=== PATIENT | female | born 1960 | race Caucasian/White ===

== ENCOUNTER 2021-02-14 17:12 | Inpatient (IN) ==
[2021-02-14] MEDS ORDERED: DilTIAZem 125 MG in D5% in Water 100 ML IVC SCH (17:45)
[2021-02-14 18:03] LABS: Hemoglobin 13.8 g/dL (11.5-15.4); Mean Corpuscular HGB Conc 32.9 g/dL (31.6-35.5); Mean Corpuscular Hemoglobin 29.4 pg (28.0-33.3); Mean Corpuscular Volume 89.4 fL (83.0-100.0); Mean Platelet Volume 9.9 fL (9.4-12.4); Platelet Count 274 K/mcL (140-400); Red Cell Distribution Width 14.6 % (11.5-14.5)
[2021-02-14 18:07] LABS: White Blood Count 9.7 K/mcL (4.3-11.1)
[2021-02-14 18:23] LABS: Alanine Aminotransferase 93 Units/L (7-52); Albumin 3.6 g/dL (3.5-5.7); Albumin/Globulin Ratio 1.2 (1.1-2.2); Aspartate Amino Transferase 76 Units/L (13-39); BUN/Creatinine Ratio 34 (6-26); Bilirubin,Direct 0.4 mg/dL (0.0-0.2); Bilirubin,Indirect 0.6 mg/dL (0.0-1.0); Blood Urea Nitrogen 35 mg/dL (8-23); Calcium 8.7 mg/dL (8.6-10.3); Carbon Dioxide 18 mEq/L (23-29); Chloride 104 mEq/L (98-107); Globulin 2.9 g/dL (2.4-3.5); Glucose 96 mg/dL (70-105); Lipase 43 Units/L (11-82); Osmolality,Calculated 286 (280-300); Potassium 3.9 mEq/L (3.5-5.1); Sodium 134 mEq/L (136-145); Total Protein 6.5 g/dL (6.4-8.9); eGFR For African Americans > 60 (> 60); eGFR For Non-African Americans 54 (> 60)
[2021-02-14 18:31] LABS: Troponin I < 0.03 ng/mL (< 0.04)
[2021-02-14] MEDS ORDERED: Ondansetron 4 MG/2 ML VIAL IVP ONE (19:02)
[2021-02-14] MEDS ORDERED: *HR* HYDROmorphone (PF) 1 MG/ML SYRINGE IVP STA (19:02)
[2021-02-14 19:20] LABS: Alkaline Phosphatase 81 Units/L (34-104)
[2021-02-14] MEDS: 0.9 % Sodium Chloride 1,000 ML IVC SCH (19:27)
[2021-02-14] MEDS ORDERED: Naloxone 0.4 MG/ML INJ IVP PRN (20:10)
[2021-02-14] MEDS ORDERED: Ondansetron 4 MG/2 ML VIAL IVP PRN (20:10)
[2021-02-14] MEDS ORDERED: Acetaminophen 325 MG TABLET PO PRN (20:10)
[2021-02-14] MEDS ORDERED: 0.9 % Sodium Chloride 1,000 ML IVC SCH (20:15)
[2021-02-14] MEDS ORDERED: *HR* Metoprolol 5 MG/5 ML VIAL IVP ONE (20:53)
[2021-02-15] MEDS ORDERED: D5% in Water 1,000 ML IVC PRN (00:11)
[2021-02-15] MEDS ORDERED: Dextrose Gel 15 GM/37.5 ML TUBE PO PRN ×2 (00:11)
[2021-02-15] MEDS ORDERED: *HR* Dextrose 50 % in Water (Vial) 50 ML VIAL IVP PRN (00:11)
[2021-02-15] MEDS: cefTRIAXone 1,000 MG in Water for inj. (sterile) 10 ML IVP SCH ×2 (02:00→13:49)
[2021-02-15] MEDS ORDERED: *HR* Heparin 5,000 UNIT/ML VIAL IVP PRN ×2 (03:27)
[2021-02-15] MEDS ORDERED: *HR* Heparin 5,000 UNIT/ML VIAL IVP ONE (03:27)
[2021-02-15] MEDS ORDERED: Heparin 25,000UNIT/250ML 1/2NS 25,000 UNIT/250 ML IV.SOLN IVC SCH (03:30)
[2021-02-15 03:43] LABS: BUN/Creatinine Ratio 37 (6-26); Blood Urea Nitrogen 33 mg/dL (8-23); Calcium 8.2 mg/dL (8.6-10.3); Carbon Dioxide 19 mEq/L (23-29); Chloride 105 mEq/L (98-107); Glucose 101 mg/dL (70-105); Osmolality,Calculated 285 (280-300); Potassium 4.4 mEq/L (3.5-5.1); Sodium 134 mEq/L (136-145); eGFR For African Americans > 60 (> 60); eGFR For Non-African Americans > 60 (> 60)
[2021-02-15] MEDS: DilTIAZem 50 MG/50 ML IV.SOLN IVC SCH ×3 (04:51→14:29)
[2021-02-15] MEDS: MetroNIDAZOLE 500 MG/100 ML 500 MG/100 ML BAG IVPB SCH ×3 (05:01→18:00)
[2021-02-15] MEDS: 0.9 % Sodium Chloride 1,000 ML IVC SCH ×2 (05:12→05:37)
[2021-02-15] MEDS ORDERED: 0.9 % Sodium Chloride 1,000 ML IVC SCH (05:15)
[2021-02-15 05:26] LABS: Heparin anti-factor XA UFH 0.13 IU/mL (0.30-0.70); Prothrombin Time 16.5 Seconds (9.4-12.1)
[2021-02-15 05:27] LABS: INR 1.4
[2021-02-15 05:36] LABS: Hemoglobin 13.2 g/dL (11.5-15.4); Mean Corpuscular Volume 92.1 fL (83.0-100.0); Red Blood Count 4.45 M/mcL (3.82-4.97); White Blood Count 8.6 K/mcL (4.3-11.1)
[2021-02-15 05:37] LABS: Mean Corpuscular HGB Conc 32.2 g/dL (31.6-35.5); Mean Corpuscular Hemoglobin 29.7 pg (28.0-33.3); Mean Platelet Volume 10.3 fL (9.4-12.4); Platelet Count 263 K/mcL (140-400); Red Cell Distribution Width 14.8 % (11.5-14.5)
[2021-02-15] MEDS ORDERED: *HR* Metoprolol 5 MG/5 ML VIAL IVP ONE (08:19)
[2021-02-15] MEDS ORDERED: Lidocaine HCL 4 ML Topical Solution (Laryng-O-Jet Kit Sterile Pak) TP ONE (08:35)
[2021-02-15] MEDS ORDERED: Lidocaine -MPF 2% 2 ML VIAL ONE (08:35)
[2021-02-15] MEDS ORDERED: *HR* Rocuronium Bromide 50 MG/5 ML VIAL ONE (08:35)
[2021-02-15] MEDS ORDERED: Ondansetron 4 MG/2 ML VIAL ONE (08:35)
[2021-02-15] MEDS ORDERED: *HR* Digoxin 0.5 MG/2 ML AMPUL IVP ONE (08:35)
[2021-02-15] MEDS ORDERED: *HR* FentaNYL (PF) 100 MCG/2 ML VIAL ONE (08:35)
[2021-02-15] MEDS ORDERED: *HR* Propofol 200 MG/20 ML VIAL IVP ONE (08:35)
[2021-02-15] MEDS ORDERED: *HR* Midazolam HCl 2 MG/2 ML VIAL ONE (08:35)
[2021-02-15] MEDS ORDERED: *HR* Succinylcholine 200 MG/10 ML VIAL IVP ONE (08:35)
[2021-02-15] MEDS ORDERED: cefOXitin 1,000 MG, 0.9 % Sodium Chloride 1,000 ML IR ONE (09:00)
[2021-02-15] MEDS: Insulin LISPRO 300 UNITS/3 ML VIAL SUBQ SCH ×3 (10:38→19:06)
[2021-02-15 10:49] LABS: Estimated Average Glucose 120 mg/dl; Hemoglobin A1C 5.8 %
[2021-02-15] MEDS ORDERED: Isovue-300 50ML VIAL ONE (11:40)
[2021-02-15] MEDS: Gabapentin 400 MG CAPSULE PO SCH (20:31)
[2021-02-16] MEDS: MetroNIDAZOLE 500 MG/100 ML 500 MG/100 ML BAG IVPB SCH ×3 (00:29→16:03)
[2021-02-16] MEDS: Insulin LISPRO 300 UNITS/3 ML VIAL SUBQ SCH ×4 (00:32→17:09)
[2021-02-16 06:16] LABS: Hematocrit 42.1 % (35.3-44.9); Hemoglobin 13.3 g/dL (11.5-15.4); Mean Corpuscular HGB Conc 31.6 g/dL (31.6-35.5); Mean Corpuscular Hemoglobin 29.6 pg (28.0-33.3); Mean Corpuscular Volume 93.6 fL (83.0-100.0); Mean Platelet Volume 9.6 fL (9.4-12.4); Platelet Count 251 K/mcL (140-400); Red Cell Distribution Width 14.7 % (11.5-14.5); White Blood Count 7.6 K/mcL (4.3-11.1)
[2021-02-16 06:43] LABS: BUN/Creatinine Ratio 26 (6-26); Blood Urea Nitrogen 25 mg/dL (8-23); Calcium 8.3 mg/dL (8.6-10.3); Carbon Dioxide 24 mEq/L (23-29); Chloride 105 mEq/L (98-107); Glucose 92 mg/dL (70-105); Osmolality,Calculated 286 (280-300); Potassium 4.1 mEq/L (3.5-5.1); Sodium 136 mEq/L (136-145); eGFR For African Americans > 60 (> 60); eGFR For Non-African Americans 59 (> 60)
[2021-02-16] MEDS ORDERED: DilTIAZem CD (24hr) 120 MG CAP.ER.24H PO SCH (07:29)
[2021-02-16] MEDS ORDERED: *HR* LORazepam 2 MG/ML VIAL IVP ONE (08:34)
[2021-02-16] MEDS ORDERED: Venlafaxine XR (24 HR) 75 MG CAP.ER.24H PO SCH (09:00)
[2021-02-16] MEDS ORDERED: Furosemide 20 MG/2 ML VIAL IVP SCH (09:00)
[2021-02-16] MEDS ORDERED: Venlafaxine XR (24 HR) 150 MG CAP.ER.24H PO SCH (09:00)
[2021-02-16] MEDS: Gabapentin 400 MG CAPSULE PO SCH ×3 (09:15→19:47)
[2021-02-16] MEDS: cefTRIAXone 1,000 MG in Water for inj. (sterile) 10 ML IVP SCH (10:22)
[2021-02-16] MEDS ORDERED: *HR* Propofol 200 MG/20 ML VIAL IVP ONE (10:33)
[2021-02-16] MEDS ORDERED: *HR* FentaNYL (PF) 100 MCG/2 ML VIAL ONE (10:33)
[2021-02-16] MEDS ORDERED: *HR* Rocuronium Bromide 50 MG/5 ML VIAL ONE (10:34)
[2021-02-16] MEDS ORDERED: *HR* Succinylcholine 200 MG/10 ML VIAL IVP ONE (10:34)
[2021-02-16] MEDS ORDERED: *HR* Midazolam HCl 2 MG/2 ML VIAL ONE (10:34)
[2021-02-16] MEDS ORDERED: Ondansetron 4 MG/2 ML VIAL ONE (10:34)
[2021-02-16] MEDS ORDERED: Lidocaine -MPF 2% 2 ML VIAL ONE (10:34)
[2021-02-16] MEDS ORDERED: *HR* HYDROMORPHONE 2 MG/ML VIAL ONE (10:34)
[2021-02-16] MEDS ORDERED: Lidocaine HCL 4 ML Topical Solution (Laryng-O-Jet Kit Sterile Pak) TP ONE (10:34)
[2021-02-16] MEDS ORDERED: Sugammadex Sodium 200 MG/2 ML VIAL IV ONE (10:35)
[2021-02-16] MEDS ORDERED: cefOXitin 1,000 MG, 0.9 % Sodium Chloride 1,000 ML IR ONE ×2 (11:15→14:48)
[2021-02-16] MEDS ORDERED: *HR* HYDROmorphone PF 0.5 MG/0.5 ML SYRINGE IVP PRN ×2 (11:48→14:48)
[2021-02-16] MEDS ORDERED: Ondansetron 4 MG/2 ML VIAL IVP PRN ×2 (11:48→14:48)
[2021-02-16] MEDS ORDERED: *HR* Meperidine 25 MG/ML SYRINGE IVP PRN ×2 (11:48→14:48)
[2021-02-16] MEDS ORDERED: Ketorolac 30 MG/ML VIAL ONE (12:58)
[2021-02-16] MEDS ORDERED: Levalbuterol Neb 1.25 MG/3 ML IH STA (13:40)
[2021-02-16] MEDS ORDERED: Promethazine 6.25 MG in Water for inj. (sterile) 20 ML IVPB PRN (14:02)
[2021-02-16] MEDS ORDERED: *HR* Dextrose 50 % in Water (Vial) 50 ML VIAL IVP PRN (14:48)
[2021-02-16] MEDS ORDERED: Naloxone 0.4 MG/ML INJ IVP PRN (14:48)
[2021-02-16] MEDS ORDERED: Acetaminophen 325 MG TABLET PO PRN (14:48)
[2021-02-16] MEDS ORDERED: Dextrose Gel 15 GM/37.5 ML TUBE PO PRN ×2 (14:48)
[2021-02-16] MEDS ORDERED: D5% in Water 1,000 ML IVC PRN (14:48)
[2021-02-16] MEDS: Furosemide 20 MG/2 ML VIAL IVP SCH (17:10)
[2021-02-17] MEDS: MetroNIDAZOLE 500 MG/100 ML 500 MG/100 ML BAG IVPB SCH ×3 (00:29→18:28)
[2021-02-17] MEDS: Insulin LISPRO 300 UNITS/3 ML VIAL SUBQ SCH ×4 (00:30→18:29)
[2021-02-17 06:13] VITALS: TEMP 97.8; O2SAT 90
[2021-02-17] MEDS: Gabapentin 400 MG CAPSULE PO SCH ×2 (08:48→16:15)
[2021-02-17] MEDS: Furosemide 20 MG/2 ML VIAL IVP SCH ×2 (08:48→18:29)
[2021-02-17] MEDS ORDERED: cefTRIAXone 1,000 MG in Water for inj. (sterile) 10 ML IVP SCH (09:00)
[2021-02-17] MEDS ORDERED: Venlafaxine XR (24 HR) 75 MG CAP.ER.24H PO SCH (09:00)
[2021-02-17] MEDS ORDERED: DilTIAZem CD (24hr) 120 MG CAP.ER.24H PO SCH (09:00)
[2021-02-17 09:09] LABS: Hematocrit 42.2 % (35.3-44.9); Hemoglobin 13.2 g/dL (11.5-15.4); Mean Corpuscular HGB Conc 31.3 g/dL (31.6-35.5); Mean Corpuscular Hemoglobin 29.2 pg (28.0-33.3); Mean Corpuscular Volume 93.4 fL (83.0-100.0); Mean Platelet Volume 9.6 fL (9.4-12.4); Platelet Count 249 K/mcL (140-400); Red Blood Count 4.52 M/mcL (3.82-4.97); Red Cell Distribution Width 14.6 % (11.5-14.5); White Blood Count 8.2 K/mcL (4.3-11.1)
[2021-02-17 09:25] LABS: Magnesium 2.2 mg/dL (1.6-2.6); Potassium 4.7 mEq/L (3.5-5.1)
[2021-02-17 11:10] LABS: Calcium 8.8 mg/dL (8.6-10.3)
[2021-02-17 11:49] VITALS: BP 111/86; PULSE 119
== END 2021-02-17 19:03 | disposition home or self-care (01) | DRG 417 ==
LOC: EMEROOARM 17:12 → 2NENU 17:12 → SUATTDRO 20:06 → 2NENU 21:13 → SUATTDRO 02-15 21:05
PROVIDERS: ADMIT Internal Medicine; ATTEND Internal Medicine

== ENCOUNTER 2021-02-22 11:59 | Inpatient (IN) ==
[2021-02-22] MEDS ORDERED: Morphine Sulfate 2 MG/ML SYRINGE IVP ONE (12:05)
[2021-02-22] MEDS ORDERED: 0.9 % Sodium Chloride 1,000 ML IVC ONE (12:05)
[2021-02-22] MEDS ORDERED: Ondansetron 4 MG/2 ML VIAL IVP ONE (12:05)
[2021-02-22] MEDS ORDERED: Isovue-370 500 ML BOTTLE IVP ONE ×2 (12:18→13:15)
[2021-02-22 12:48] LABS: Basophils % 0.1 %; Hemoglobin 14.4 g/dL (11.5-15.4); Monocytes % 6.6 %; Segmented Neutrophils % 90.1 %
[2021-02-22 12:50] LABS: Hematocrit 43.2 % (35.3-44.9); Immature Granulocytes % 0.7 % (0-4); Lymphocytes # 0.7 K/mcL (0.6-4.6); Lymphocytes % 2.5 %; Mean Corpuscular HGB Conc 33.3 g/dL (31.6-35.5); Mean Corpuscular Hemoglobin 29.8 pg (28.0-33.3); Mean Corpuscular Volume 89.3 fL (83.0-100.0); Monocytes # 1.8 K/mcL (0.0-1.3); Nucleated Red Blood Cells 0.1 /100 WBC (0); Platelet Count 200 K/mcL (140-400); Red Blood Count 4.84 M/mcL (3.82-4.97); Red Cell Distribution Width 14.6 % (11.5-14.5); White Blood Count 26.8 K/mcL (4.3-11.1)
[2021-02-22 12:59] LABS: INR 1.3; Prothrombin Time 15.3 Seconds (9.4-12.1)
[2021-02-22 13:00] LABS: VBG HCO3 33 mEq/L (21-27); VBG PCO2 60 mmHg (41-51); VBG PH 7.36 pH Units (7.32-7.42); VBG PO2 39 mmHg (25-50)
[2021-02-22 13:01] LABS: Activated Partial Thrombo Time 29.7 Seconds (26.0-36.0)
[2021-02-22 13:08] LABS: Neutrophils # 24.2 K/mcL (1.6-8.9)
[2021-02-22] MEDS ORDERED: cefTRIAXone 2,000 MG in Water for inj. (sterile) 20 ML IVP ONE (13:13)
[2021-02-22 13:18] LABS: Albumin 3.7 g/dL (3.5-5.7); Albumin/Globulin Ratio 1.1 (1.1-2.2); Bilirubin,Direct 0.5 mg/dL (0.0-0.2); Bilirubin,Indirect 0.7 mg/dL (0.0-1.0); Bilirubin,Total 1.2 mg/dL (0.3-1.0); Calcium 9.1 mg/dL (8.6-10.3); Globulin 3.4 g/dL (2.4-3.5); Potassium 2.4 mEq/L (3.5-5.1); Total Protein 7.1 g/dL (6.4-8.9); Troponin I 0.03 ng/mL (< 0.04)
[2021-02-22] MEDS ORDERED: *HR* Dextrose 50 % in Water (Vial) 50 ML VIAL IVP ONE ×2 (13:18→21:45)
[2021-02-22 13:27] LABS: Platelet Estimate Normal (Normal)
[2021-02-22] MEDS ORDERED: Norepinephrine 4 MG in 0.9 % Sodium Chloride 250 ML IVC SCH (14:15)
[2021-02-22 14:27] LABS: Adenovirus Not Detected (Not Detect); Bordetella Pertussis Not Detected (Not Detect); Chlamydophila pneumoniae Not Detected (Not Detect); Coronavirus 229E Not Detected (Not Detect); Coronavirus HKU1 Not Detected (Not Detect); Coronavirus NL63 Not Detected (Not Detect); Coronavirus OC43 Not Detected (Not Detect); Human Metapneumovirus Not Detected (Not Detect); Human Rhinovirus/Enterovirus Not Detected (Not Detect); Influenza A Subtype 2009 H1 Not Detected (Not Detect); Influenza B Not Detected (Not Detect); Mycoplasma pneumoniae Not Detected (Not Detect); Parainfluenza Virus 1 Not Detected (Not Detect); Parainfluenza Virus 2 Not Detected (Not Detect); Parainfluenza Virus 3 Not Detected (Not Detect); Parainfluenza Virus 4 Not Detected (Not Detect); Respiratory Syncytial Virus Not Detected (Not Detect); SARS-CoV-2 Not Detected (Not Detect)
[2021-02-22 14:35] LABS: Bilirubin,Urine Negative (Negative); Blood,Urine Negative (Negative); Clarity,Urine Clear (Clear); Color,Urine Yellow (Yellow); Glucose,Urine (UA) Normal (Normal); Hyaline Casts,Urine Few per lpf (None Seen); Ketones,Urine Negative (Negative); Leukocyte Esterase,Urine Negative (Negative); Mucus,Urine Few per lpf (None-Few); Nitrite,Urine Negative (Negative); PH,Urine 5.5 pH Units (5.0-8.0); Protein,Urine 30 mg/dL (Neg-Trace); RBC,Urine 0-3 per hpf (0-3); Specific Gravity,Urine 1.018 (1.010-1.025); Squamous Epithelial Cell,Urine Few per hpf (None-Few); Urobilinogen,Urine Normal (Normal); WBC,Urine 0-3 per hpf (0-3)
[2021-02-22] MEDS ORDERED: ALTEPLASE IVPB ONE (15:15)
[2021-02-22] MEDS ORDERED: WATER FOR INJ IVPB ONE (15:15)
[2021-02-22] MEDS ORDERED: *HR* Etomidate 20 MG/10 ML AMPUL IVP ONE (15:52)
[2021-02-22] MEDS ORDERED: *HR* Heparin 5,000 UNIT/ML VIAL IVP ONE (16:50)
[2021-02-22] MEDS ORDERED: *HR* Heparin 5,000 UNIT/ML VIAL IVP PRN ×2 (16:50)
[2021-02-22] MEDS ORDERED: Norepinephrine 4 MG/254 ML IV.SOLN IVC SCH (17:00)
[2021-02-22] MEDS: Heparin 25,000UNIT/250ML 1/2NS 25,000 UNIT/250 ML IV.SOLN IVC SCH (17:39)
[2021-02-22 18:06] LABS: Mean Corpuscular HGB Conc 32.1 g/dL (31.6-35.5); Mean Corpuscular Volume 90.5 fL (83.0-100.0); Mean Platelet Volume 9.8 fL (9.4-12.4); Platelet Count 160 K/mcL (140-400); White Blood Count 24.9 K/mcL (4.3-11.1)
[2021-02-22 18:14] LABS: INR 1.3; Prothrombin Time 15.3 Seconds (9.4-12.1)
[2021-02-22 18:16] LABS: Heparin anti-factor XA UFH < 0.04 IU/mL (0.30-0.70)
[2021-02-22 18:17] LABS: Hemoglobin 12.2 g/dL (11.5-15.4)
[2021-02-22] MEDS ORDERED: *HR* Dextrose 50 % in Water (Vial) 50 ML VIAL ONE (18:53)
[2021-02-22] MEDS ORDERED: Levalbuterol Neb 1.25 MG/3 ML IH STA (18:57)
[2021-02-22] MEDS ORDERED: methylPREDNISolone 125 MG/2 ML VIAL IVP STA (18:57)
[2021-02-22] MEDS ORDERED: 0.9 % Sodium Chloride 250 ML IVC STA (20:47)
[2021-02-22] MEDS ORDERED: Pantoprazole 40 MG VIAL IVP ONE (20:47)
[2021-02-22] MEDS ORDERED: *HR* Dextrose 50 % in Water (Syg) 50 ML SYRINGE ONE (21:50)
[2021-02-22] MEDS ORDERED: *HR* Dextrose 50 % in Water (Syg) 50 ML SYRINGE IVP ONE (22:00)
[2021-02-22] MEDS ORDERED: Azithromycin 500 MG in 0.9 % Sodium Chloride 250 ML IVPB ONE (23:52)
[2021-02-23] MEDS ORDERED: *HR* Dextrose 50 % in Water (Syg) 50 ML SYRINGE ONE ×2 (00:35→03:14)
[2021-02-23] MEDS ORDERED: Cefepime HCl 1,000 MG in Water for inj. (sterile) 10 ML IVP STA (00:37)
[2021-02-23] MEDS ORDERED: *HR* Dextrose 50 % in Water (Vial) 50 ML VIAL IVP ONE ×2 (00:45→04:15)
[2021-02-23] MEDS ORDERED: Vancomycin 1,750 MG/517.5 ML IV.SOLN IVPB ONE (01:00)
[2021-02-23 01:19] LABS: Calcium 7.9 mg/dL (8.6-10.3); Potassium 3.6 mEq/L (3.5-5.1)
[2021-02-23] MEDS ORDERED: Naloxone 0.4 MG/ML INJ IVP PRN (04:26)
[2021-02-23] MEDS ORDERED: Acetaminophen 325 MG TABLET PO PRN (04:26)
[2021-02-23] MEDS ORDERED: Ondansetron 4 MG/2 ML VIAL IVP PRN (04:26)
[2021-02-23] MEDS ORDERED: Dextrose Gel 15 GM/37.5 ML TUBE PO PRN ×2 (04:37)
[2021-02-23] MEDS ORDERED: *HR* Dextrose 50 % in Water (Vial) 50 ML VIAL IVP PRN (04:37)
[2021-02-23] MEDS ORDERED: D5% in Water 1,000 ML IVC PRN ×2 (04:37→12:54)
[2021-02-23] MEDS ORDERED: *HR* Metoprolol 5 MG/5 ML VIAL IVP PRN (04:38)
[2021-02-23] MEDS ORDERED: Vancomycin (wt based) 1,000 MG VIAL IVPB SCH (05:00)
[2021-02-23 05:10] LABS: Basophils % 0.1 %; Hematocrit 34.3 % (35.3-44.9); Hemoglobin 10.9 g/dL (11.5-15.4); Immature Granulocytes % 0.7 % (0-4); Lymphocytes # 0.5 K/mcL (0.6-4.6); Lymphocytes % 2.7 %; Mean Corpuscular HGB Conc 31.8 g/dL (31.6-35.5); Mean Corpuscular Hemoglobin 28.8 pg (28.0-33.3); Mean Corpuscular Volume 90.7 fL (83.0-100.0); Monocytes # 0.9 K/mcL (0.0-1.3); Monocytes % 4.5 %; Neutrophils # 18.4 K/mcL (1.6-8.9); Nucleated Red Blood Cells 0.1 /100 WBC (0); Platelet Count 103 K/mcL (140-400); Red Blood Count 3.78 M/mcL (3.82-4.97); Red Cell Distribution Width 15.2 % (11.5-14.5)
[2021-02-23 05:18] LABS: Heparin anti-factor XA UFH 0.94 IU/mL (0.30-0.70); INR 1.5; Prothrombin Time 16.7 Seconds (9.4-12.1)
[2021-02-23] MEDS: Ipratropium/Albuterol Neb 3 ML IH SCH ×6 (05:22→23:40)
[2021-02-23 05:25] LABS: Calcium 7.6 mg/dL (8.6-10.3); Potassium 3.6 mEq/L (3.5-5.1)
[2021-02-23 05:27] LABS: Magnesium 1.9 mg/dL (1.6-2.6); Phosphorous 3.6 mg/dL (2.7-4.5)
[2021-02-23 05:41] LABS: Activated Partial Thrombo Time 134.9 Seconds (26.0-36.0)
[2021-02-23 05:47] LABS: Troponin I 0.04 ng/mL (< 0.04)
[2021-02-23] MEDS ORDERED: Perflutren Lipid Microsphere 1.3 ML in 0.9 % Sodium Chloride 8.7 ML IVP PRN (06:40)
[2021-02-23] MEDS: Budesonide/Formoterol 160/4.5 1 PUFF INH IH SCH ×2 (07:59→20:07)
[2021-02-23] MEDS ORDERED: Cefepime HCl 2,000 MG in Water for inj. (sterile) 10 ML IVP SCH (08:00)
[2021-02-23] MEDS: MethylPREDNISolone 40 MG/ML VIAL IVP SCH ×2 (08:03→17:21)
[2021-02-23] MEDS ORDERED: Azithromycin 250 MG TABLET PO SCH (09:00)
[2021-02-23] MEDS: Azithromycin 500 MG in 0.9 % Sodium Chloride 250 ML IVPB SCH (09:11)
[2021-02-23] MEDS: Heparin 25,000UNIT/250ML 1/2NS 25,000 UNIT/250 ML IV.SOLN IVC SCH ×3 (09:27→15:30)
[2021-02-23] MEDS: D5% in 0.9% NACL 1,000 ML IVC SCH ×2 (10:50→12:55)
[2021-02-23] MEDS ORDERED: 0.9 % Sodium Chloride 1,000 ML IVC SCH (13:00)
[2021-02-23] MEDS: 0.9 % Sodium Chloride 1,000 ML IVC SCH ×2 (13:35→21:45)
[2021-02-23] MEDS ORDERED: *HR* Heparin 5,000 UNIT/ML VIAL IVP PRN ×2 (15:28)
[2021-02-23] MEDS ORDERED: Melatonin 3 MG TABLET PO PRN (20:56)
[2021-02-23] MEDS: Gabapentin 300 MG CAPSULE PO SCH (21:45)
[2021-02-23] MEDS: Cefepime HCl 2,000 MG in Water for inj. (sterile) 20 ML IVP SCH (21:45)
[2021-02-24] MEDS ORDERED: Vancomycin 1,500 MG/265 ML IV.SOLN IVPB SCH (01:00)
[2021-02-24] MEDS: MethylPREDNISolone 40 MG/ML VIAL IVP SCH ×4 (01:49→22:58)
[2021-02-24] MEDS: Ipratropium/Albuterol Neb 3 ML IH SCH ×6 (04:02→23:33)
[2021-02-24] MEDS: 0.9 % Sodium Chloride 1,000 ML IVC SCH ×2 (05:51→11:20)
[2021-02-24] MEDS: Heparin 25,000UNIT/250ML 1/2NS 25,000 UNIT/250 ML IV.SOLN IVC SCH (06:30)
[2021-02-24 06:54] LABS: Basophils % 0.1 %; Hemoglobin 11.4 g/dL (11.5-15.4); Red Cell Distribution Width 15.5 % (11.5-14.5)
[2021-02-24 06:56] LABS: Hematocrit 35.7 % (35.3-44.9); Immature Granulocytes % 0.8 % (0-4); Immature Platelets 4.7 % (1.1-6.1); Lymphocytes # 0.5 K/mcL (0.6-4.6); Lymphocytes % 2.4 %; Mean Corpuscular HGB Conc 31.9 g/dL (31.6-35.5); Mean Corpuscular Volume 90.8 fL (83.0-100.0); Monocytes # 0.6 K/mcL (0.0-1.3); Monocytes % 3.4 %; Neutrophils # 17.5 K/mcL (1.6-8.9); Red Blood Count 3.93 M/mcL (3.82-4.97); Segmented Neutrophils % 93.3 %; White Blood Count 18.7 K/mcL (4.3-11.1)
[2021-02-24 07:06] LABS: Calcium 8.4 mg/dL (8.6-10.3); Potassium 3.5 mEq/L (3.5-5.1)
[2021-02-24 07:14] LABS: Platelet Count 95 K/mcL (140-400); Platelet Estimate Slight Decrease (Normal)
[2021-02-24] MEDS: Budesonide/Formoterol 160/4.5 1 PUFF INH IH SCH ×2 (07:24→20:28)
[2021-02-24] MEDS: Gabapentin 300 MG CAPSULE PO SCH ×3 (08:17→20:14)
[2021-02-24] MEDS: Cefepime HCl 2,000 MG in Water for inj. (sterile) 20 ML IVP SCH ×2 (08:18→20:14)
[2021-02-24] MEDS: Azithromycin 500 MG in 0.9 % Sodium Chloride 250 ML IVPB SCH (08:18)
[2021-02-24] MEDS ORDERED: Venlafaxine XR (24 HR) 75 MG CAP.ER.24H PO SCH (09:00)
[2021-02-24 12:02] LABS: Activated Partial Thrombo Time 43.2 Seconds (26.0-36.0)
[2021-02-24 13:57] LABS: INR 1.1; Prothrombin Time 12.4 Seconds (9.4-12.1)
[2021-02-24] MEDS: Argatroban 250 MG in 0.9 % Sodium Chloride 250 ML IVC SCH (16:02)
[2021-02-24 17:19] LABS: Bilirubin,Direct 0.2 mg/dL (0.0-0.2); Bilirubin,Indirect 0.4 mg/dL (0.0-1.0); Bilirubin,Total 0.6 mg/dL (0.3-1.0); Globulin 2.9 g/dL (2.4-3.5); Total Protein 5.9 g/dL (6.4-8.9)
[2021-02-25 01:30] LABS: Basophils % 0.1 %
[2021-02-25 01:32] LABS: Hematocrit 34.4 % (35.3-44.9); Immature Granulocytes % 0.7 % (0-4); Lymphocytes # 0.4 K/mcL (0.6-4.6); Lymphocytes % 2.6 %; Mean Corpuscular Hemoglobin 29.1 pg (28.0-33.3); Mean Platelet Volume 10.3 fL (9.4-12.4); Monocytes # 0.5 K/mcL (0.0-1.3); Monocytes % 2.8 %; Neutrophils # 15.4 K/mcL (1.6-8.9); Red Blood Count 3.78 M/mcL (3.82-4.97); Red Cell Distribution Width 15.4 % (11.5-14.5); Segmented Neutrophils % 93.8 %; White Blood Count 16.4 K/mcL (4.3-11.1)
[2021-02-25 01:35] LABS: Platelet Count 99 K/mcL (140-400)
[2021-02-25 01:52] LABS: BUN/Creatinine Ratio 32 (6-26); Blood Urea Nitrogen 34 mg/dL (8-23); Calcium 8.6 mg/dL (8.6-10.3); Carbon Dioxide 27 mEq/L (23-29); Chloride 103 mEq/L (98-107); Glucose 149 mg/dL (70-105); Osmolality,Calculated 294 (280-300); Potassium 3.9 mEq/L (3.5-5.1); Sodium 137 mEq/L (136-145); eGFR For African Americans > 60 (> 60); eGFR For Non-African Americans 52 (> 60)
[2021-02-25] MEDS: Ipratropium/Albuterol Neb 3 ML IH SCH ×6 (03:46→22:49)
[2021-02-25] MEDS: Budesonide/Formoterol 160/4.5 1 PUFF INH IH SCH ×2 (07:19→19:53)
[2021-02-25] MEDS ORDERED: Venlafaxine XR (24 HR) 150 MG CAP.ER.24H PO SCH (09:00)
[2021-02-25] MEDS: Cefepime HCl 2,000 MG in Water for inj. (sterile) 20 ML IVP SCH ×2 (09:30→22:25)
[2021-02-25] MEDS: MethylPREDNISolone 40 MG/ML VIAL IVP SCH ×3 (09:33→23:38)
[2021-02-25] MEDS: Gabapentin 300 MG CAPSULE PO SCH ×3 (09:34→22:26)
[2021-02-25] MEDS: Venlafaxine XR (24 HR) 75 MG CAP.ER.24H PO SCH (09:34)
[2021-02-25] MEDS: Azithromycin 500 MG in 0.9 % Sodium Chloride 250 ML IVPB SCH (10:57)
[2021-02-25] MEDS: Insulin LISPRO 300 UNITS/3 ML VIAL SUBQ SCH ×2 (12:25→16:20)
[2021-02-25] MEDS ORDERED: *HR* Dextrose 50 % in Water (Syg) 50 ML SYRINGE IVP PRN (14:45)
[2021-02-25] MEDS: Argatroban 250 MG in 0.9 % Sodium Chloride 250 ML IVC SCH (22:26)
[2021-02-26 01:37] LABS: Basophils % 0.1 %; Hematocrit 35.6 % (35.3-44.9); Immature Granulocytes % 0.9 % (0-4); Lymphocytes # 0.4 K/mcL (0.6-4.6); Lymphocytes % 3.2 %; Mean Corpuscular HGB Conc 30.9 g/dL (31.6-35.5); Mean Corpuscular Hemoglobin 28.9 pg (28.0-33.3); Mean Corpuscular Volume 93.7 fL (83.0-100.0); Mean Platelet Volume 10.4 fL (9.4-12.4); Monocytes # 0.5 K/mcL (0.0-1.3); Monocytes % 3.8 %; Neutrophils # 10.9 K/mcL (1.6-8.9); Nucleated Red Blood Cells 0.2 /100 WBC (0); Platelet Count 109 K/mcL (140-400); Red Cell Distribution Width 15.7 % (11.5-14.5); White Blood Count 11.9 K/mcL (4.3-11.1)
[2021-02-26 01:51] LABS: BUN/Creatinine Ratio 35 (6-26); Blood Urea Nitrogen 38 mg/dL (8-23); Calcium 8.9 mg/dL (8.6-10.3); Carbon Dioxide 27 mEq/L (23-29); Chloride 104 mEq/L (98-107); Glucose 155 mg/dL (70-105); Osmolality,Calculated 296 (280-300); Potassium 4.3 mEq/L (3.5-5.1); Sodium 137 mEq/L (136-145); eGFR For African Americans > 60 (> 60); eGFR For Non-African Americans 51 (> 60)
[2021-02-26] MEDS: Ipratropium/Albuterol Neb 3 ML IH SCH ×6 (03:21→23:47)
[2021-02-26] MEDS: Budesonide/Formoterol 160/4.5 1 PUFF INH IH SCH ×2 (07:28→19:38)
[2021-02-26] MEDS: Cefepime HCl 2,000 MG in Water for inj. (sterile) 20 ML IVP SCH (08:52)
[2021-02-26] MEDS: Azithromycin 500 MG in 0.9 % Sodium Chloride 250 ML IVPB SCH (08:53)
[2021-02-26] MEDS: MethylPREDNISolone 40 MG/ML VIAL IVP SCH ×2 (08:54→17:13)
[2021-02-26] MEDS: Venlafaxine XR (24 HR) 75 MG CAP.ER.24H PO SCH (08:55)
[2021-02-26] MEDS: Gabapentin 300 MG CAPSULE PO SCH ×3 (08:55→22:17)
[2021-02-26] MEDS: Insulin LISPRO 300 UNITS/3 ML VIAL SUBQ SCH ×3 (09:14→17:13)
[2021-02-26] MEDS: *HR* Rivaroxaban 15 MG TABLET PO SCH ×2 (10:34→22:17)
[2021-02-26] MEDS: DilTIAZem CD (24hr) 180 MG CAP.ER.24H PO SCH (12:50)
[2021-02-26] MEDS: Metoprolol 100 MG TABLET PO SCH ×2 (13:43→22:17)
[2021-02-26] MEDS ORDERED: Metoprolol 100 MG TABLET PO SCH (21:00)
[2021-02-27] MEDS: Ipratropium/Albuterol Neb 3 ML IH SCH ×6 (03:47→23:52)
[2021-02-27 04:39] LABS: Basophils % 0.1 %; Hemoglobin 11.1 g/dL (11.5-15.4); Immature Granulocytes % 0.8 % (0-4); Lymphocytes # 0.5 K/mcL (0.6-4.6); Lymphocytes % 4.4 %; Mean Corpuscular HGB Conc 30.8 g/dL (31.6-35.5); Mean Corpuscular Hemoglobin 28.9 pg (28.0-33.3); Mean Corpuscular Volume 93.8 fL (83.0-100.0); Mean Platelet Volume 10.1 fL (9.4-12.4); Monocytes # 0.6 K/mcL (0.0-1.3); Monocytes % 4.4 %; Neutrophils # 11.2 K/mcL (1.6-8.9); Platelet Count 141 K/mcL (140-400); Red Blood Count 3.84 M/mcL (3.82-4.97); Red Cell Distribution Width 15.8 % (11.5-14.5); Segmented Neutrophils % 90.3 %; White Blood Count 12.4 K/mcL (4.3-11.1)
[2021-02-27 04:56] LABS: BUN/Creatinine Ratio 42 (6-26); Blood Urea Nitrogen 43 mg/dL (8-23); Calcium 9.1 mg/dL (8.6-10.3); Carbon Dioxide 27 mEq/L (23-29); Chloride 106 mEq/L (98-107); Glucose 128 mg/dL (70-105); Osmolality,Calculated 302 (280-300); Potassium 4.9 mEq/L (3.5-5.1); Sodium 140 mEq/L (136-145); eGFR For African Americans > 60 (> 60); eGFR For Non-African Americans 55 (> 60)
[2021-02-27] MEDS: MethylPREDNISolone 40 MG/ML VIAL IVP SCH ×2 (05:28→16:48)
[2021-02-27] MEDS: Budesonide/Formoterol 160/4.5 1 PUFF INH IH SCH ×2 (07:35→19:33)
[2021-02-27] MEDS: Insulin LISPRO 300 UNITS/3 ML VIAL SUBQ SCH ×3 (08:12→16:48)
[2021-02-27] MEDS: DilTIAZem CD (24hr) 180 MG CAP.ER.24H PO SCH (08:22)
[2021-02-27] MEDS: Gabapentin 300 MG CAPSULE PO SCH ×3 (08:22→20:20)
[2021-02-27] MEDS: Venlafaxine XR (24 HR) 75 MG CAP.ER.24H PO SCH (08:22)
[2021-02-27] MEDS: *HR* Rivaroxaban 15 MG TABLET PO SCH ×2 (08:22→20:20)
[2021-02-27] MEDS: levoFLOXacin 750 MG TABLET PO SCH (08:22)
[2021-02-27] MEDS: Metoprolol 100 MG TABLET PO SCH ×2 (08:22→20:20)
[2021-02-28 03:13] LABS: Basophils % 0.1 %; Hematocrit 36.1 % (35.3-44.9); Hemoglobin 11.4 g/dL (11.5-15.4); Immature Granulocytes % 0.9 % (0-4); Lymphocytes # 0.5 K/mcL (0.6-4.6); Lymphocytes % 3.6 %; Mean Corpuscular HGB Conc 31.6 g/dL (31.6-35.5); Mean Corpuscular Hemoglobin 29.2 pg (28.0-33.3); Mean Corpuscular Volume 92.3 fL (83.0-100.0); Monocytes # 0.5 K/mcL (0.0-1.3); Monocytes % 3.7 %; Neutrophils # 11.9 K/mcL (1.6-8.9); Platelet Count 192 K/mcL (140-400); Red Blood Count 3.91 M/mcL (3.82-4.97); Red Cell Distribution Width 15.5 % (11.5-14.5); Segmented Neutrophils % 91.7 %
[2021-02-28] MEDS: Ipratropium/Albuterol Neb 3 ML IH SCH ×6 (03:26→23:38)
[2021-02-28] MEDS: MethylPREDNISolone 40 MG/ML VIAL IVP SCH ×2 (05:35→16:42)
[2021-02-28] MEDS: Budesonide/Formoterol 160/4.5 1 PUFF INH IH SCH ×2 (07:35→19:21)
[2021-02-28] MEDS: Gabapentin 300 MG CAPSULE PO SCH ×3 (08:39→20:22)
[2021-02-28] MEDS: Insulin LISPRO 300 UNITS/3 ML VIAL SUBQ SCH ×3 (08:39→16:42)
[2021-02-28] MEDS: levoFLOXacin 750 MG TABLET PO SCH (08:39)
[2021-02-28] MEDS: DilTIAZem CD (24hr) 180 MG CAP.ER.24H PO SCH (08:39)
[2021-02-28] MEDS: Metoprolol 100 MG TABLET PO SCH ×2 (08:39→20:19)
[2021-02-28] MEDS: *HR* Rivaroxaban 15 MG TABLET PO SCH ×2 (08:39→20:18)
[2021-02-28] MEDS: Venlafaxine XR (24 HR) 75 MG CAP.ER.24H PO SCH (08:39)
[2021-03-01 03:31] LABS: Basophils % 0.1 %; Hematocrit 37.2 % (35.3-44.9); Hemoglobin 11.7 g/dL (11.5-15.4); Lymphocytes # 0.4 K/mcL (0.6-4.6); Lymphocytes % 2.5 %; Mean Corpuscular HGB Conc 31.5 g/dL (31.6-35.5); Mean Corpuscular Hemoglobin 28.7 pg (28.0-33.3); Mean Corpuscular Volume 91.4 fL (83.0-100.0); Monocytes # 0.6 K/mcL (0.0-1.3); Monocytes % 4.1 %; Neutrophils # 12.7 K/mcL (1.6-8.9); Platelet Count 256 K/mcL (140-400); Red Blood Count 4.07 M/mcL (3.82-4.97); Red Cell Distribution Width 15.4 % (11.5-14.5); Segmented Neutrophils % 92.3 %; White Blood Count 13.8 K/mcL (4.3-11.1)
[2021-03-01] MEDS: Ipratropium/Albuterol Neb 3 ML IH SCH ×5 (03:44→20:16)
[2021-03-01] MEDS: MethylPREDNISolone 40 MG/ML VIAL IVP SCH (05:26)
[2021-03-01] MEDS: Budesonide/Formoterol 160/4.5 1 PUFF INH IH SCH ×2 (07:25→20:16)
[2021-03-01] MEDS: Insulin LISPRO 300 UNITS/3 ML VIAL SUBQ SCH ×3 (08:00→17:11)
[2021-03-01] MEDS ORDERED: amLODIPine 5 MG TABLET PO ONE (08:01)
[2021-03-01] MEDS ORDERED: Losartan/HCTZ 50-12.5 TABLET PO ONE ×2 (08:03→13:00)
[2021-03-01] MEDS: levoFLOXacin 750 MG TABLET PO SCH (08:06)
[2021-03-01] MEDS: Venlafaxine XR (24 HR) 75 MG CAP.ER.24H PO SCH (08:06)
[2021-03-01] MEDS: Metoprolol 100 MG TABLET PO SCH (08:07)
[2021-03-01] MEDS: *HR* Rivaroxaban 15 MG TABLET PO SCH ×2 (08:07→18:21)
[2021-03-01] MEDS: Gabapentin 300 MG CAPSULE PO SCH ×2 (08:07→18:21)
[2021-03-01] MEDS: DilTIAZem CD (24hr) 180 MG CAP.ER.24H PO SCH (08:07)
[2021-03-01 19:48] VITALS: BP 152/97; PULSE 87; TEMP 97.6; O2SAT 95
== END 2021-03-01 20:18 | disposition home health service (06) | DRG 871 ==
LOC: EMEROOARM 11:59 → 2NNU 11:59 → OBSVTOIN 02-23 02:39 → SUATTDRO 02-23 02:39 → 2NNU 02-23 03:50 → 2ANU 02-23 10:42
PROVIDERS: ADMIT Internal Medicine; ATTEND Student in an Organized Health Care Education/Training Program